=== PATIENT | female | born 1960 | race Caucasian/White ===

== ENCOUNTER 2022-02-02 21:35 | Inpatient (IN) ==
[2022-02-02 22:18] LABS: Basophils % 0.3 %; Eosinophils # 0.2 K/mcL (0.0-0.6); Eosinophils % 1.7 %; Hematocrit 37.3 % (35.3-44.9); Hemoglobin 12.5 g/dL (11.5-15.4); Immature Granulocytes % 0.4 % (0-4); Lymphocytes # 3.4 K/mcL (0.6-4.6); Lymphocytes % 25.9 %; Mean Corpuscular HGB Conc 33.5 g/dL (31.6-35.5); Mean Corpuscular Hemoglobin 30.2 pg (28.0-33.3); Mean Corpuscular Volume 90.1 fL (83.0-100.0); Mean Platelet Volume 12.1 fL (9.4-12.4); Monocytes % 7.7 %; Neutrophils # 8.4 K/mcL (1.6-8.9); Platelet Count 186 K/mcL (140-400); Red Blood Count 4.14 M/mcL (3.82-4.97); Red Cell Distribution Width 13.6 % (11.5-14.5); White Blood Count 13.1 K/mcL (4.3-11.1)
[2022-02-02 22:37] LABS: Alanine Aminotransferase 8 Units/L (7-52); Albumin 4.5 g/dL (3.5-5.7); Albumin/Globulin Ratio 1.6 (1.1-2.2); Alkaline Phosphatase 73 Units/L (34-104); Aspartate Amino Transferase 13 Units/L (13-39); BUN/Creatinine Ratio 18 (6-26); Bilirubin,Direct 0.1 mg/dL (0.0-0.2); Bilirubin,Indirect 0.4 mg/dL (0.0-1.0); Bilirubin,Total 0.5 mg/dL (0.3-1.0); Blood Urea Nitrogen 16 mg/dL (8-23); Calcium 9.9 mg/dL (8.6-10.3); Carbon Dioxide 27 mEq/L (23-29); Chloride 99 mEq/L (98-107); Globulin 2.9 g/dL (2.4-3.5); Glucose 104 mg/dL (70-105); Lipase 5 Units/L (11-82); Osmolality,Calculated 281 (280-300); Potassium 4.1 mEq/L (3.5-5.1); Sodium 135 mEq/L (136-145); Total Protein 7.4 g/dL (6.4-8.9); eGFR For African Americans > 60 (> 60); eGFR For Non-African Americans > 60 (> 60)
[2022-02-02] MEDS ORDERED: Ondansetron 4 MG/2 ML VIAL IVP ONE (23:48)
[2022-02-03] MEDS ORDERED: 0.9 % Sodium Chloride 1,000 ML IVC ONE (00:01)
[2022-02-03 00:24] LABS: Bacteria,Urine Few per hpf (None-Few); Bilirubin,Urine Negative (Negative); Blood,Urine Negative (Negative); Clarity,Urine Clear (Clear); Color,Urine Yellow (Yellow); Glucose,Urine (UA) Normal (Normal); Ketones,Urine Negative (Negative); Leukocyte Esterase,Urine Small (Negative); Mucus,Urine Few per lpf (None-Few); Nitrite,Urine Negative (Negative); Protein,Urine Trace mg/dL (Neg-Trace); RBC,Urine 0-3 per hpf (0-3); Specific Gravity,Urine 1.015 (1.010-1.025); Squamous Epithelial Cell,Urine Moderate per hpf (None-Few); Urobilinogen,Urine Normal (Normal); WBC,Urine 0-3 per hpf (0-3)
[2022-02-03] MEDS ORDERED: Isovue-370 500 ML BOTTLE IVP ONE (00:37)
[2022-02-03 02:36] LABS: Adenovirus Not Detected (Not Detect); Bordetella Pertussis Not Detected (Not Detect); Chlamydophila pneumoniae Not Detected (Not Detect); Coronavirus 229E Not Detected (Not Detect); Coronavirus HKU1 Not Detected (Not Detect); Coronavirus NL63 Not Detected (Not Detect); Coronavirus OC43 Not Detected (Not Detect); Human Metapneumovirus Not Detected (Not Detect); Human Rhinovirus/Enterovirus Not Detected (Not Detect); Influenza A Subtype 2009 H1 Not Detected (Not Detect); Influenza B Not Detected (Not Detect); Mycoplasma pneumoniae Not Detected (Not Detect); Parainfluenza Virus 1 Not Detected (Not Detect); Parainfluenza Virus 2 Not Detected (Not Detect); Parainfluenza Virus 3 Not Detected (Not Detect); Parainfluenza Virus 4 Not Detected (Not Detect); Respiratory Syncytial Virus Not Detected (Not Detect); SARS-CoV-2 Not Detected (Not Detect)
[2022-02-03] MEDS ORDERED: 0.9 % Sodium Chloride 1,000 ML IV ONE (03:16)
[2022-02-03] MEDS ORDERED: Naloxone 0.4 MG/ML INJ IVP PRN (03:27)
[2022-02-03] MEDS ORDERED: Ringers Solution, Lactated 1,000 ML IVC SCH (03:30)
[2022-02-03] MEDS ORDERED: Saliva Stimulant 44.3ml BOTTLE PO PRN (03:32)
[2022-02-03] MEDS ORDERED: *HR* Dextrose 50 % in Water (Syg) 50 ML SYRINGE IVP PRN (04:22)
[2022-02-03] MEDS ORDERED: Dextrose 4 GM Chewable Tablets PO PRN ×2 (04:22)
[2022-02-03] MEDS ORDERED: D5% in Water 1,000 ML IVC PRN (04:22)
[2022-02-03] MEDS ORDERED: Nicotine 2 MG GUM BC PRN (05:10)
[2022-02-03] MEDS ORDERED: 0.9 % Sodium Chloride 1,000 ML IVC SCH (05:15)
[2022-02-03] MEDS: Ketorolac 30 MG/ML VIAL IM PRN ×3 (05:31→20:46)
[2022-02-03] MEDS: *HR* LORazepam 2 MG/ML VIAL IVP PRN ×2 (05:31→13:54)
[2022-02-03] MEDS: 0.9 % Sodium Chloride 1,000 ML IVC SCH ×2 (05:32→13:43)
[2022-02-03] MEDS ORDERED: Artificial Tears SOLN 15 ML BOTTLE BOTH EYES PRN (05:45)
[2022-02-03 06:11] LABS: Basophils % 0.2 %; Eosinophils # 0.1 K/mcL (0.0-0.6); Eosinophils % 1.3 %; Hematocrit 34.7 % (35.3-44.9); Hemoglobin 11.4 g/dL (11.5-15.4); Immature Granulocytes % 0.3 % (0-4); Lymphocytes # 2.1 K/mcL (0.6-4.6); Lymphocytes % 22.1 %; Mean Corpuscular HGB Conc 32.9 g/dL (31.6-35.5); Mean Corpuscular Hemoglobin 29.9 pg (28.0-33.3); Mean Corpuscular Volume 91.1 fL (83.0-100.0); Mean Platelet Volume 11.9 fL (9.4-12.4); Monocytes # 0.9 K/mcL (0.0-1.3); Monocytes % 9.2 %; Neutrophils # 6.2 K/mcL (1.6-8.9); Platelet Count 185 K/mcL (140-400); Red Blood Count 3.81 M/mcL (3.82-4.97); Red Cell Distribution Width 13.7 % (11.5-14.5); Segmented Neutrophils % 66.9 %; White Blood Count 9.3 K/mcL (4.3-11.1)
[2022-02-03 06:19] LABS: INR 1.2; Prothrombin Time 13.6 Seconds (9.4-12.1)
[2022-02-03 06:22] LABS: Activated Partial Thrombo Time 34.1 Seconds (26.0-36.0)
[2022-02-03 06:29] LABS: BUN/Creatinine Ratio 18 (6-26); Blood Urea Nitrogen 14 mg/dL (8-23); Carbon Dioxide 27 mEq/L (23-29); Chloride 105 mEq/L (98-107); Glucose 110 mg/dL (70-105); Osmolality,Calculated 287 (280-300); Phosphorous 2.7 mg/dL (2.7-4.5); Sodium 138 mEq/L (136-145); eGFR For African Americans > 60 (> 60); eGFR For Non-African Americans > 60 (> 60)
[2022-02-03 06:44] LABS: Chol/HDL Ratio 3.6 (0-4.9); Cholesterol 178 mg/dL (< 200); HDL Cholesterol 49 mg/dL (40-59); LDL Cholesterol,Calculated 110 mg/dL (< 100); Triglycerides 94 mg/dL (< 150)
[2022-02-03] MEDS: Ipratropium/Albuterol Neb 3 ML IH SCH ×4 (07:13→19:39)
[2022-02-03] MEDS: Budesonide/Formoterol 160/4.5 1 PUFF INH IH SCH ×2 (07:13→19:40)
[2022-02-03] MEDS: MetroNIDAZOLE 500 MG/100 ML 500 MG/100 ML BAG IVPB SCH ×2 (07:26→15:47)
[2022-02-03 07:42] LABS: Estimated Average Glucose 111 mg/dl; Hemoglobin A1C 5.5 %
[2022-02-03] MEDS: Pantoprazole 40 MG VIAL IVP SCH (08:34)
[2022-02-03] MEDS: Chlorhexidine Rinse 15 ML MOUTHWASH MM SCH ×2 (08:34→20:48)
[2022-02-03] MEDS: Nicotine 21 MG PATCH.TD24 TD SCH (08:34)
[2022-02-03] MEDS: MethylPREDNISolone 40 MG/ML VIAL IVP SCH (08:34)
[2022-02-03] MEDS: Acetaminophen IV 1,000 MG/100 ML BAG IVPB SCH ×2 (08:37→17:23)
[2022-02-03] MEDS: polyethylene glycoL 3350 17 GM POWD.PACK PO SCH ×2 (13:54→20:46)
[2022-02-03 15:21] LABS: C-Reactive Protein 29 mg/L (Less than 10)
[2022-02-04] MEDS: Ipratropium/Albuterol Neb 3 ML IH SCH ×7 (00:11→23:04)
[2022-02-04] MEDS: *HR* LORazepam 2 MG/ML VIAL IVP PRN ×2 (00:33→20:53)
[2022-02-04] MEDS: MetroNIDAZOLE 500 MG/100 ML 500 MG/100 ML BAG IVPB SCH ×2 (00:33→07:44)
[2022-02-04] MEDS: Acetaminophen IV 1,000 MG/100 ML BAG IVPB SCH ×3 (00:34→16:12)
[2022-02-04 01:19] LABS: Basophils % 0.1 %; Hematocrit 31.7 % (35.3-44.9); Hemoglobin 10.1 g/dL (11.5-15.4); Immature Granulocytes % 0.3 % (0-4); Lymphocytes # 1.9 K/mcL (0.6-4.6); Lymphocytes % 18.5 %; Mean Corpuscular HGB Conc 31.9 g/dL (31.6-35.5); Mean Corpuscular Hemoglobin 30.1 pg (28.0-33.3); Mean Corpuscular Volume 94.6 fL (83.0-100.0); Mean Platelet Volume 11.5 fL (9.4-12.4); Monocytes # 0.8 K/mcL (0.0-1.3); Monocytes % 8.1 %; Neutrophils # 7.4 K/mcL (1.6-8.9); Platelet Count 210 K/mcL (140-400); Red Blood Count 3.35 M/mcL (3.82-4.97); Red Cell Distribution Width 13.6 % (11.5-14.5); White Blood Count 10.2 K/mcL (4.3-11.1)
[2022-02-04 01:40] LABS: BUN/Creatinine Ratio 14 (6-26); Blood Urea Nitrogen 12 mg/dL (8-23); Calcium 9.2 mg/dL (8.6-10.3); Carbon Dioxide 20 mEq/L (23-29); Chloride 107 mEq/L (98-107); Glucose 153 mg/dL (70-105); Magnesium 1.8 mg/dL (1.6-2.6); Osmolality,Calculated 287 (280-300); Potassium 4.3 mEq/L (3.5-5.1); Sodium 137 mEq/L (136-145); eGFR For African Americans > 60 (> 60); eGFR For Non-African Americans > 60 (> 60)
[2022-02-04] MEDS ORDERED: *HR* Enoxaparin 40 MG/0.4 ML SYRINGE SQ SCH (06:00)
[2022-02-04] MEDS: Ondansetron 4 MG/2 ML VIAL IVP PRN ×2 (06:29→14:45)
[2022-02-04] MEDS: Ketorolac 30 MG/ML VIAL IM PRN ×3 (06:29→20:53)
[2022-02-04] MEDS: Tiotropium 10 INH DOSE IH SCH (07:29)
[2022-02-04] MEDS: Budesonide/Formoterol 160/4.5 1 PUFF INH IH SCH ×2 (07:29→20:19)
[2022-02-04] MEDS: Pantoprazole 40 MG VIAL IVP SCH (07:44)
[2022-02-04] MEDS: Chlorhexidine Rinse 15 ML MOUTHWASH MM SCH (07:45)
[2022-02-04] MEDS: polyethylene glycoL 3350 17 GM POWD.PACK PO SCH ×2 (07:45→20:52)
[2022-02-04] MEDS: Nicotine 21 MG PATCH.TD24 TD SCH (07:45)
[2022-02-04] MEDS: BuPROPion XL (24 HR) 150 MG TABLET PO SCH (07:45)
[2022-02-04] MEDS: MethylPREDNISolone 40 MG/ML VIAL IVP SCH (07:45)
[2022-02-04] MEDS: *HR* Promethazine 25 MG/ML VIAL IM PRN ×2 (11:20→20:52)
[2022-02-04] MEDS: 0.9 % Sodium Chloride 1,000 ML IVC SCH (11:20)
[2022-02-04] MEDS ORDERED: Prochlorperazine 10 MG/2 ML VIAL IVP ONE (20:54)
[2022-02-05] MEDS: Acetaminophen IV 1,000 MG/100 ML BAG IVPB SCH ×2 (00:57→09:38)
[2022-02-05] MEDS: 0.9 % Sodium Chloride 1,000 ML IVC SCH (00:58)
[2022-02-05 01:26] LABS: Basophils % 0.1 %; Hematocrit 31.7 % (35.3-44.9); Hemoglobin 10.5 g/dL (11.5-15.4); Immature Granulocytes % 0.3 % (0-4); Lymphocytes # 2.1 K/mcL (0.6-4.6); Lymphocytes % 18.1 %; Mean Corpuscular HGB Conc 33.1 g/dL (31.6-35.5); Mean Corpuscular Hemoglobin 30.3 pg (28.0-33.3); Mean Corpuscular Volume 91.6 fL (83.0-100.0); Mean Platelet Volume 11.6 fL (9.4-12.4); Monocytes # 0.8 K/mcL (0.0-1.3); Monocytes % 6.5 %; Neutrophils # 8.6 K/mcL (1.6-8.9); Platelet Count 191 K/mcL (140-400); Red Blood Count 3.46 M/mcL (3.82-4.97); Red Cell Distribution Width 13.9 % (11.5-14.5); White Blood Count 11.5 K/mcL (4.3-11.1)
[2022-02-05 01:49] LABS: BUN/Creatinine Ratio 14 (6-26); Blood Urea Nitrogen 12 mg/dL (8-23); Calcium 9.2 mg/dL (8.6-10.3); Carbon Dioxide 25 mEq/L (23-29); Chloride 110 mEq/L (98-107); Glucose 110 mg/dL (70-105); Magnesium 1.9 mg/dL (1.6-2.6); Osmolality,Calculated 294 (280-300); Potassium 4.1 mEq/L (3.5-5.1); Sodium 142 mEq/L (136-145); eGFR For African Americans > 60 (> 60); eGFR For Non-African Americans > 60 (> 60)
[2022-02-05] MEDS: Ipratropium/Albuterol Neb 3 ML IH SCH ×6 (03:00→23:17)
[2022-02-05] MEDS: Tiotropium 10 INH DOSE IH SCH (07:29)
[2022-02-05] MEDS: Nicotine 21 MG PATCH.TD24 TD SCH (09:39)
[2022-02-05] MEDS: Pantoprazole 40 MG VIAL IVP SCH (09:39)
[2022-02-05] MEDS: BuPROPion XL (24 HR) 150 MG TABLET PO SCH (09:40)
[2022-02-05] MEDS: polyethylene glycoL 3350 17 GM POWD.PACK PO SCH ×2 (09:41→21:40)
[2022-02-05] MEDS: Milk and Molasses Enema 200 ML RC SCH ×4 (09:41→21:59)
[2022-02-05] MEDS: Budesonide/Formoterol 160/4.5 1 PUFF INH IH SCH ×2 (11:12→20:33)
[2022-02-05] MEDS ORDERED: NALOXONE HCL SL SCH (12:00)
[2022-02-05] MEDS ORDERED: BUPRENORPHINE HCL SL SCH (12:00)
[2022-02-05] MEDS: *HR* Buprenorphine HCl 8 MG TAB.SUBL SL SCH (15:57)
[2022-02-05] MEDS: Ketorolac 30 MG/ML VIAL IM PRN (22:47)
[2022-02-06] MEDS: Milk and Molasses Enema 200 ML RC SCH (02:57)
[2022-02-06 03:15] LABS: Basophils % 0.3 %; Eosinophils # 0.1 K/mcL (0.0-0.6); Eosinophils % 1.2 %; Hematocrit 31.3 % (35.3-44.9); Hemoglobin 9.8 g/dL (11.5-15.4); Immature Granulocytes % 0.3 % (0-4); Lymphocytes % 32.2 %; Mean Corpuscular HGB Conc 31.3 g/dL (31.6-35.5); Mean Corpuscular Hemoglobin 29.7 pg (28.0-33.3); Mean Corpuscular Volume 94.8 fL (83.0-100.0); Mean Platelet Volume 11.7 fL (9.4-12.4); Monocytes # 0.6 K/mcL (0.0-1.3); Monocytes % 6.5 %; Neutrophils # 5.5 K/mcL (1.6-8.9); Platelet Count 180 K/mcL (140-400); Red Cell Distribution Width 14.1 % (11.5-14.5); Segmented Neutrophils % 59.5 %; White Blood Count 9.3 K/mcL (4.3-11.1)
[2022-02-06 03:32] LABS: BUN/Creatinine Ratio 13 (6-26); Blood Urea Nitrogen 10 mg/dL (8-23); Calcium 8.7 mg/dL (8.6-10.3); Carbon Dioxide 23 mEq/L (23-29); Chloride 112 mEq/L (98-107); Glucose 94 mg/dL (70-105); Osmolality,Calculated 293 (280-300); Potassium 4.1 mEq/L (3.5-5.1); Sodium 142 mEq/L (136-145); eGFR For African Americans > 60 (> 60); eGFR For Non-African Americans > 60 (> 60)
[2022-02-06 03:33] LABS: Magnesium 1.5 mg/dL (1.6-2.6); Phosphorous 3.8 mg/dL (2.7-4.5)
[2022-02-06] MEDS: Ipratropium/Albuterol Neb 3 ML IH SCH ×3 (04:15→10:56)
[2022-02-06] MEDS: Tiotropium 10 INH DOSE IH SCH (07:47)
[2022-02-06] MEDS: Budesonide/Formoterol 160/4.5 1 PUFF INH IH SCH (07:48)
[2022-02-06] MEDS ORDERED: polyethylene glycoL 3350 17 GM POWD.PACK PO SCH (09:00)
[2022-02-06 09:09] VITALS: BP 139/77; PULSE 81; TEMP 98; O2SAT 94
[2022-02-06] MEDS: *HR* Buprenorphine HCl 8 MG TAB.SUBL SL SCH (09:58)
[2022-02-06] MEDS: BuPROPion XL (24 HR) 150 MG TABLET PO SCH (09:58)
[2022-02-06] MEDS: Nicotine 21 MG PATCH.TD24 TD SCH (09:59)
[2022-02-06] MEDS: Pantoprazole 40 MG VIAL IVP SCH (10:21)
== END 2022-02-06 11:08 | disposition home or self-care (01) | DRG 254 ==
LOC: EMEROOARM 21:35 → 3ANU 21:35 → SUATTDRO 02-03 03:04 → 3ANU 02-03 03:33 → SUATTDRO 02-04 18:08
PROVIDERS: ADMIT Internal Medicine; ATTEND Internal Medicine